=== PATIENT | female | born 1990 | race Caucasian/White ===

== ENCOUNTER 2020-05-30 06:54 | Outpatient (NON) | payer OTHER, SELFPAY ==
[2020-05-30 19:54] LABS: SARS-CoV-2 RNA PCR Negative
== END 2020-05-30 06:55 ==
LOC: ANHCOVIDDT 07:16
PROVIDERS: PCP Emergency Medicine; Visit Provider Emergency Medicine
DX: Z20.828 Contact with and (suspected) exposure to other viral communicable diseases (principal)
CPT/HCPCS: 87635; C9803; U0003

== ENCOUNTER 2021-02-23 10:50 | Emergency (ER) | payer OTHER, SELFPAY ==
--- NOTE | 2021-02-23 11:23 | ED.ANXIETY ---
HPI - Anxiety General Chief Complaint: Anxiety Stated Complaint: anxiety issues Source: patient and RN notes reviewed Limitations: no limitations History of Present Illness HPI narrative: The patient, only social drinker/social smoker who works as a employment security officer, presents with insomnia and anxiety. Patient states she has a year and a half history of anxiety, felt to have begun after her most recent child. This is manifested by poor concentration and inability to to finish current task, resulting in desire to run away , initial and terminal insomnia, occ hyperventilation, palpitations and anxiety. She has had previous course of Zoloft, and takes as needed Benadryl to alleviate her symptoms. No suicidal SI/HI, guilt, loss of weight, crying spells, street drug use --but she does have poor concentration from this. No chest pain, shortness of breath, vomiting/diarrhea, fever, loss of taste/smell. SHe advised to follow-up with her doctor, discussed will start a different SSRI and provide short-term insomnia medication. Related Data Allergies Allergy/AdvReac Type Severity Reaction Status Date / Time No Known Allergies Allergy Unknown Unverified 01/21/18 20:13 Review of Systems Review of Systems: General/Constitutional: No weight loss,fever Eyes: N0: Redness,discharge Ears/Nose/Throat: No: Epistaxis,ear discharge Respiratory: Denies: Hemoptysis Gastrointestinal: No Vomiting, Bleeding-rectal Skin: No Lumps, eruption Neurologic: No Focal Weakness,Sz Hematologic: Denies: Petechiae/Purpura Psychiatric: No: Suicida ideationl All Other Systems: Reviewed and Negative [facility] Family History Family History Mother Acute myocardial infarction Social History Social History Years smoked: 2 Smoking status: Former smoker Tobacco type: cigarettes Additional smoking assessment comments: Stopped smoking in 2016 Substance use: never Spiritual care concerns: No Comments At time of signature, agree with nursing past medical, surgical, social and family history. There is no relevant family history pertinent to the presenting complaint Exam Narrative: General Appearance: Well appearing, No distress EYE: PERRLA, Conjunctiva clear Ears: External ear normal Nose: Normal nose Mouth/Throat: Normal appearing, Normal lips Neck: Supple Respiratory: Airway patent, No respiratory distress Cardiovascular: RRR Abdomen: Soft, Non-tender, Musculoskeletal: Full ROM Skin: Warm, Dry Neurological: A&O x3, CN II-X intact Psychiatric: Normal mood, Normal affect Discharge Plan Discharge Clinical Impression: Insomnia, History of adjustment disorder Patient Disposition: Home, Self-Care Condition: Stable Instructions: Anxiety (ED) Prescriptions: New paroxetine HCl [Paxil] 20 mg tablet 20 mg PO QAM Qty: 20 RF: 2 temazepam [Restoril] 7.5 mg capsule 7.5 mg PO HS PRN (Reason: sleep) Qty: 14 RF: 0 Follow-up/Referrals: Jack Gleason MD [Primary Care Provider] -
== END 2021-02-23 11:32 | disposition home or self-care (01) ==
PROVIDERS: Emergency Provider Emergency Medicine; PCP Emergency Medicine
DX: G47.00 Insomnia, unspecified (principal); F43.20 Adjustment disorder, unspecified
CPT/HCPCS: 99213; G0463

== ENCOUNTER 2022-05-03 09:47 | Emergency (ER) | payer OTHER, SELFPAY ==
[2022-05-03 09:55] VITALS: BP 118/88; PULSE 82; RESP 16; TEMP 36.8; O2SAT 99
--- NOTE | 2022-05-03 10:14 | ED.GENADULT ---
HPI - General Adult General Chief complaint: Skin/Abscess/Foreign Body Stated complaint: Skin Problem Source: patient Mode of arrival: ambulatory Limitations: no limitations History of Present Illness HPI narrative: Patient presents for evaluation of skin pain . Pain is in right lower back, just above the waistline. She states symptoms started three days ago. Initially her pain felt like pins and needles , although she cannot provide me with a description of her current pain. Pain has progressed in severity to rating of 5/10. She now reports a few pink lesions in the affected area. She states her pain radiates into the right hip. She had chickenpox as a child and had herpes zoster during adolescence. Her pain interfered with her ability to sleep last night. She states the day prior to symptom onset she had pain in bilateral retro-orbital regions. No additional complaints or concerns. Related Data Home Medications Medication Instructions Recorded Confirmed dextroamphetamine-amphetamine ER 20 mg PO DAILY 05/03/22 05/03/22 20 mg 24hr capsule,extend release (Adderall XR) levonorgestrel 20 mcg/24 hours (8 1 device intrauterine ONCE 05/03/22 05/03/22 yrs) 52 mg intrauterine device (Mirena) Allergies Allergy/AdvReac Type Severity Reaction Status Date / Time No Known Allergies Allergy Unknown Verified 05/03/22 10:01 Review of Systems Review of Systems: CONSTITUTIONAL: Denies fever, chills, or sweats. EYES: Denies visual changes, redness, or discharge. ENT: Denies rhinorrhea, congestion, sore throat, or otalgia. CARDIOVASCULAR: Denies chest pain, palpitations, or edema. RESPIRATORY: Denies cough or dyspnea. GASTROINTESTINAL: Denies abdominal pain, nausea, vomiting, or diarrhea. GENITOURINARY: Denies dysuria or hematuria. SKIN: Reports a few pink-colored lesions to the right lower back MUSCULOSKELETAL: Reports right lower back pain with radiation to the right hip. NEUROLOGIC: Reports tingling sensation in the right lower back. Reports recent headache, none currently. Denies dizziness, or weakness. PSYCHIATRIC: Denies anxiety or depression. [facility] Past Medical History Medical History Herpes zoster Surgical History Surgical History No pertinent past surgical history Family History Family History Mother Acute myocardial infarction Social History Social History (Updated 05/03/22 @ 10:16 by Juwan Pelaez [facility], ) Years smoked: 2 Smoking status: Former smoker Tobacco type: cigarettes Additional smoking assessment comments: Stopped smoking in 2016 Alcohol intake: current Alcohol use details: rare Substance use: never Living arrangements: with family Gender identity (if verbalized by the patient): Female Sexual Orientation (if Verbalized by the Patient): Straight or Heterosexual Spiritual care concerns: No Exam Narrative: GENERAL: Well-appearing, well-nourished, and in no acute distress. HEAD: Normocephalic, atraumatic. EYES: PERRLA and EOMI. ENT: Nares clear, no rhinorrhea or epistaxis. Mucous membranes moist. Oropharynx without tonsillar hypertrophy exudate or other lesions. Bilateral TMs pearly gutierrez nonbulging NECK: Supple. No adenopathy or masses. No carotid bruits or JVD CHEST: Clear to auscultation. No respiratory distress. No wheezes rales or rhonchi HEART: Regular rate and rhythm. No murmur heard. Normal peripheral pulses. ABDOMEN: Soft, nontender, nondistended, normal active bowel sounds. EXTREMITIES: Normal range of motion. No edema. SKIN: (2) approximately 2 mm raised forming vesicles to the right lower back. NEURO: No focal deficits. Alert and oriented x3. PSYCH: Normal mood and affect. Course Course Emergency Course: This is a 31-year-old female who presented for
== END 2022-05-03 10:10 | disposition home or self-care (01) ==
PROVIDERS: Emergency Provider Nurse Practitioner
DX: B02.9 Zoster without complications (principal); Z87.891 Personal history of nicotine dependence
CPT/HCPCS: 99213; G0463

== ENCOUNTER 2023-05-23 18:11 | Emergency (ER) | payer OTHER, SELFPAY ==
[2023-05-23 18:16] VITALS: BP 127/74; PULSE 95; RESP 20; TEMP 37.2; O2SAT 97
--- NOTE | 2023-05-23 19:07 | ED.GENADULT ---
HPI - General Adult General Chief complaint: Upper Respiratory Infection Stated complaint: COVID test for work Source: patient Mode of arrival: ambulatory Limitations: no limitations History of Present Illness HPI narrative: Patient presents for evaluation after testing positive for COVID earlier today. She indicates last night she had a ?tickle in throat?. Today she developed a cough, a burning sensation in her chest and throat, fever and generalized body aches. She denies any nausea, vomiting, diarrhea or shortness of breath. Her son is currently sick as well. She does not smoke. She is not taking any medications for her symptoms. Related Data Home Medications Medication Instructions Recorded Confirmed No Home Medications 05/23/23 05/23/23 Allergies Allergy/AdvReac Type Severity Reaction Status Date / Time No Known Allergies Allergy Unknown Verified 05/23/23 18:30 Review of Systems Review of Systems: CONSTITUTIONAL: Reports fever. Denies chills, or sweats. EYES: Denies visual changes, redness, or discharge. ENT: Reports a burning sensation in her throat. Denies otalgia CARDIOVASCULAR: Denies chest pain, palpitations, or edema. RESPIRATORY:Reports cough and burning sensation in her lungs. Denies SOB. GASTROINTESTINAL: Denies abdominal pain, nausea, vomiting, or diarrhea. GENITOURINARY: Denies dysuria or hematuria. SKIN: Denies rash or itching. MUSCULOSKELETAL: Reports generalized body aches. NEUROLOGIC: Denies headache, numbness, dizziness, or weakness. PSYCHIATRIC: Denies anxiety or depression. [facility] Past Medical History Medical History Herpes zoster Surgical History Surgical History No pertinent past surgical history Family History Family History Mother Acute myocardial infarction Social History Social History Years smoked: 2 Smoking status: Former smoker Tobacco type: cigarettes Additional smoking assessment comments: Stopped smoking in 2016 Alcohol intake: current Alcohol use details: rare Substance use: never Living arrangements: with family Gender identity (if verbalized by the patient): Female Sexual Orientation (if Verbalized by the Patient): Straight or Heterosexual Spiritual care concerns: No Exam Narrative: GENERAL: Appears acutely ill but nontoxic. HEAD: Normocephalic, atraumatic. EYES: PERRLA and EOMI. ENT: Nares clear, no rhinorrhea or epistaxis. Mucous membranes moist. Oropharynx without tonsillar hypertrophy exudate or other lesions. Bilateral TMs pearly gutierrez nonbulging NECK: Supple. No adenopathy or masses. No carotid bruits or JVD CHEST: Clear to auscultation. Cough present on exam. No respiratory distress. No wheezes rales or rhonchi HEART: Regular rate and rhythm. No murmur heard. Normal peripheral pulses. ABDOMEN: Soft, nontender, nondistended, normal active bowel sounds. EXTREMITIES: Normal range of motion. No edema. SKIN: Warm, dry, no rash. NEURO: No focal deficits. Alert and oriented x3. PSYCH: Normal mood and affect. Course Course Emergency Course: This is a 32-year-old female who presented for evaluation of sick symptoms. She tested positive for COVID at home and is also positive here. Recommended increased hydration and [id number] agents for symptom management. Quarantine and alignment with CDC recommendations. Follow-up with primary care provider. Go to the ER for worsening symptoms. Patient in agreement of care. Level of Care: Express Care Visit Vital Signs Vital signs: Vital Signs Temperature 37.2 C 05/23/23 18:16 Pulse Rate 95 05/23/23 18:16 Respiratory Rate 20 05/23/23 18:16 Blood Pressure 127/74 05/23/23 18:16 Pulse Oximetry 97 05/23/23 18:16
== END 2023-05-23 19:18 | disposition home or self-care (01) ==
PROVIDERS: Emergency Provider Nurse Practitioner
DX: U07.1 COVID-19 (principal); Z87.891 Personal history of nicotine dependence
CPT/HCPCS: 87426; 99213; C9803; G0463